=== PATIENT | female | born 2000 | race Caucasian/White ===

== ENCOUNTER 2023-01-12 16:29 | Observation (INO) | payer OTHER, SELFPAY | END 2023-01-12 19:25 | disposition home or self-care (01) | PROVIDERS: Admitting Provider Family Medicine; Referring Provider Family Medicine; Visit Provider Family Medicine | DX: O47.1 False labor at or after 37 completed weeks of gestation (principal); Z3A.38 38 weeks gestation of pregnancy | CPT/HCPCS: 59025; 59050; G0378; G0379 ==

== ENCOUNTER 2023-01-12 22:33 | Inpatient (IN) | payer OTHER, SELFPAY ==
[2023-01-12] MEDS: LACTATED RINGERS 1,000 ML 100 ML IV (23:10)
[2023-01-12 23:35] LABS: Hematocrit 36.7 % (36-46); Hemoglobin 12.6 g/dL (12.0-16.0); Mean Corpuscular HGB Conc 34.4 % (30-36); Mean Corpuscular Hemoglobin 30.5 PG (26-34); Mean Corpuscular Volume 88.6 fL (80-100); Platelet Count 215 X10^3/uL (150-400); Red Blood Cell Count 4.14 X10^6/uL (4.0-5.2); Red Cell Distribution Width 13.8 % (11.6-14.8); White Blood Cell Count 21.9 X10^3/uL (4.5-11.0)
[2023-01-12 23:36] LABS: Add Manual Diff / Slide Review YES
[2023-01-12 23:40] VITALS: BP 119/57
[2023-01-12 23:57] LABS: Neutrophils Absolute Manual 18177 /uL (3000-5900); RBC Morphology Normal Morphology; Total Cells Counted 100
[2023-01-13] MEDS: FENT 2MCG/ML BUPIV 0.125% EPI 200 MCG/100 ML PLAST..BAG 8 MCG EPIDURAL ×2 (00:21→08:15)
[2023-01-13] MEDS: ePHEDrine 50 MG/ML VIAL 10 MG IV (01:07)
--- NOTE | 2023-01-13 07:20 | P.TNLD_ITS ---
Visit Information Visit Information Date of evaluation: 01/12/23 Primary OB Provider: Nedra Maldonado On-call OB Provider: Siomara Moses Reason for Evaluation: Yes rule out labor Vital Signs Vital Signs: Vital Signs - 8 hr 01/12/23 23:40 Blood Pressure 119/57 L PFSH Medical History Acne (~2010) BETTY (generalized anxiety disorder) Surgical History [place] teeth extracted Family History Grandfather Pulmonary hypertension Depression Grandmother Leukemia, acute Cancer Mother Adopted BETTY (generalized anxiety disorder) Social History marital status: number of children: 0 household members: spouse lives independently: No housing: house pets and animals: Yes (3 dogs, aware of toxo) education level: college ([employer]amon's degree) occupational status: unemployed current occupational exposures/hazards: No special sridevi needs: No travel history: recent (domestic only) seatbelt use: always water heater temp set < 120 deg: Yes working smoke detector in home: Yes fire extinguisher in home: Yes carbon monox detector in home: Yes firearms in home: Yes firearms unloaded and locked: Yes do you feel safe at home: Yes Smoking Status: Never smoker second hand exposure: No alcohol intake: former (~1/month prior to ) substance use type: does not use during the past year weight has: remained stable well-balanced diet: daily or most days daily servings fruits/ve-4 caffeine: Yes (1 cup/day, aware of 200mg limit) Type(s) of exercise: regular exercise and running frequency: 3-4 times per week Exam Vital Signs (past 8 hours): - 01/12/23 23:40 Blood Pressure 119/57 L Objective Labs 01/12/23 23:05 Labs: Laboratory Results - last 24 hr 01/12/23 01/12/23 23:05 23:05 WBC 21.9 H RBC 4.14 Hgb 12.6 Hct 36.7 MCV 88.6 MCH 30.5 MCHC 34.4 RDW 13.8 Plt Count 215 Neut % (Auto) Not Reportable Lymph % (Auto) Not Reportable [place] % (Auto) Not Reportable Eos % (Auto) Not Reportable Baso % (Auto) Not Reportable Lymph # (Auto) Not Reportable [place] # (Auto) Not Reportable Baso # (Auto) Not Reportable Total Counted 100 Seg Neutrophils % 77.0 H Band Neutrophils % 6.0 Lymphocytes % (Manual) 11.0 L Monocytes % (Manual) 6.0 Neutrophils # (Manual) 09433 H RBC Morphology Normal morphology Blood Type A Positive Antibody Screen Negative Evaluation Evaluation Baseline heart rate: 135 Variability: Moderate (11-25) monitor accelerations: Present Monitor Decelerations: Absent Contraction Frequency (minutes): 3 Uterine Contraction Intensity: Moderate Category of Tracing: Reactive Status: Category l Cervical dilation (cm): 1 Cervical effacement (%): 90 station: -1 Diagnosis, Plan/Disposition Final Diagnosis (1) 38 weeks gestation of : Status: Acute (2) False labor after 37 completed weeks of gestation: Status: Acute Plan/Disposition Plan: Patient in prodromal labor. She was given Demerol who try to sleep after walking for 2 hours with no change of her cervix. Precautions reviewed to return for rupture membranes, increased labor pains, any other concerns. OB Disposition: home
[2023-01-13] MEDS: LACTATED RINGERS 1,000 ML 100 ML IV (08:15)
--- NOTE | 2023-01-13 08:15 | P.HPOB_ITS ---
OB HPI Date/Time Date of admission: 01/13/23 Date Patient Seen: 01/13/23 History of Present Condition Chief complaint: SILVIA Calculator Estimated Delivery Date Method Current WG Current Estimate 01/20/23 LMP (Certain) 39w 0d Estimated Gestational Age (weeks): 39w0d : 1 Para: 0 Narrative: Pt is a 22yo at 39w0d here with regular painful contractions. Pt reports contractions increasing in frequency all day yesterday. She was evaluated in triage, and ultimately discharged home. Upon returning home, her contractions intensified significantly. She denies any LOF or significant vaginal bleeding. She is feeling her baby move regularly. The pts has been uncomplicated. She did receive a majority of her care in [place], where she was while her was deployed. care: good care, initiated at week # (8) and pounds weight gain (37) Dating criteria OB: LMP confirmed by 1st trimester US Ultrasounds: normal 1st trimester US and normal mid trimester US Obstetrical complications: none Medical complications OB: none Preadmission Labs Last OB Lab Results: Blood Type A Positive 01/12/23 23:05 Antibody Screen Negative 01/12/23 23:05 Hematocrit 36.7 % (36-46) 01/12/23 23:05 Hemoglobin 12.6 g/dL (12.0-16.0) 01/12/23 23:05 -: Urine: negative External Labs -: HBsAG: negative, HIV: negative, RPR/VDLR: negative, Chlamydia screen: negative, GBS status: negative and Urine: negative -: Rubella: immune and Varicella: immune HCAB: negative Genetic Screens: Cell-free DNA: Normal Evaluation Evaluation Baseline heart rate: 150 Variability: Moderate (11-25) monitor accelerations: Present Monitor Decelerations: Absent Contraction Frequency (minutes): 3 Uterine Contraction Intensity: Strong/Firm Status: Category l Dilation (cm): 9 Effacement (%): 100 station: 0 PFSH Medical History Acne (~2010) BETTY (generalized anxiety disorder) Surgical History [place] teeth extracted Family History Grandfather Pulmonary hypertension Depression Grandmother Leukemia, acute Cancer Mother Adopted BETTY (generalized anxiety disorder) Social History marital status: number of children: 0 household members: spouse lives independently: No housing: house pets and animals: Yes (3 dogs, aware of toxo) education level: college (Ramon's degree) occupational status: unemployed current occupational exposures/hazards: No special sridevi needs: No travel history: recent (domestic only) seatbelt use: always water heater temp set < 120 deg: Yes working smoke detector in home: Yes fire extinguisher in home: Yes carbon monox detector in home: Yes firearms in home: Yes firearms unloaded and locked: Yes do you feel safe at home: Yes Smoking Status: Never smoker second hand exposure: No alcohol intake: former (~1/month prior to ) substance use type: does not use during the past year weight has: remained stable well-balanced diet: daily or most days daily servings fruits/ve-4 caffeine: Yes (1 cup/day, aware of 200mg limit) Type(s) of exercise: regular exercise and running frequency: 3-4 times per week Meds Home Medications and Allergies Home Medications Medication Instructions Recorded Confirmed Type prenat.vits,jamila,drm-[id number] 1 tab PO DAILY 05/28/22 01/12/23 History Allergies Allergy/AdvReac Type Severity Reaction Status Date / Time latex Allergy Mild Hives Verified 01/12/23 23:48 OB Exam Narrative Exam Narrative: Gen: NAD, sitting comfortably in bed, appears well CV: RRR, no murmurs Resp: clear to auscultation bilaterally Abd: soft, nontender, gravid Ext: no edema Objective Labs 01/12/23 23:05 Labs: Laboratory Results - last 24 hr 01/12/23 01/12/23 23:05 23:05 WBC 21.9 H RBC 4.14 Hgb 12.6 Hct 36.7 MCV 88.6 MCH 30.5 MCHC 34.4 RDW 13.8 Plt Count 215 Neut % (Auto) Not Reportable Lymph % (Auto) Not Reportable [place] % (Auto) Not Reportable Eos % (Auto) Not Reportable Baso % (Auto) Not Reportable Lymph # (Auto) Not Reportable [place] # (Auto) Not Reportable Baso # (Auto) Not Reportable Total Counted 100 Seg Neutrophils % 77.0 H Band Neutrophils % 6.0 Lymphocytes % (Manual) 11.0 L Monocytes % (Manual) 6.0 Neutrophils # (Manual) 42036 H RBC Morphology Normal morphology Blood Type A Positive Antibody Screen Negative Assessment and Plan Assessment and Plan Assessment and Plan narrative: Pt is a 22yo at 39w0d here in active labor. has been uncomplicated. GBS negative, Rh positive. - Expectant management, anticipate - FHT reassuring - GBS negative, no prophylaxis indicated - Epidural in place for pain control
--- NOTE | 2023-01-13 14:09 | P.PCNOB_ITS ---
Labor & Delivery Delivery date: 01/13/23 Intrapartal Events: Prolonged 2nd Stage > 2.5 hours Delivery augmentation: rupture of membranes Delivery monitor: external FHT and external uterine Route of delivery: vacuum extraction Indication for instrumentation: maternal exhaustion Episiotomy description: None L&D Laceration Description: Perineal - 2nd Degree Delivery repair: vicryl Quantitative Blood Loss: 200 Anesthesia Type: Epidural Complications: None Narrative: PROCEDURE: at 39w0d presented in active labor and was admitted to Labor and Delivery. The patient progressed through the 1st stage over 5 hours. ROM o ccured at 8:25am with clear fluid. Pain was controlled with an epidural. The patient progressed through the 2nd stage over [id number]. Due to maternal exhaustion with slow but continuous progress making concern for shoulder dystocia low, the decision was made to proceed with vacuum-assisted . Patient was evaluated and noted to have adequate pain control. Patient counseled on risks/benefits/alternatives of vacuum [forceps] assisted delivery. Risks were discussed and they included but were not limited to a need for an episiotomy, pressure lock on the baby, lacerations to the baby's scalp/face, serious damage including skull fracture, the need to proceed with an abdominal procedure, , paralysis of the baby's arms and/or legs, neurological impairment of the baby. Alternatives would include CS or further observation depending on status. Questions were answered and the patient verbalized an understanding and decided to proceed. Cervix completely dilated and maternal bladder emptied. Maternal pelvis was noted to be adequate. Vacuum cup of the [place] OmniCup applied to the flexion point without difficulty and during contractions, pressure applied between 400-600 mmHg as indicated in the green zone of the pressure gauge. delivered after 3 contractions 0 pop-offs over an intact perineum. The anterior shoulder and remainder of the was delivered without difficulty. Cord clamped and cut after it stopped pulsating. The was delivered to the maternal abdomen. Infant was examined by and no evidence of injury noted. Delivery time was 12:09, with APGARs 8/9. The placenta delivered with gentle cord traction, and appeared complete. The perineum and vagina were inspected with 2nd degree perineal laceration, stellate onto labial repaired with 2-O Vicryl. Needle and sponge counts were correct.? The vagina was inspected and no items were left in situ. Anita was doing well with Jone, her and her at bedside. PREPROCEDURE DIAGNOSIS: Intrauterine at 39w0d GBS negative RH positive POSTPROCEDURE DIAGNOSIS: Intrauterine at 39w0d, delivered Same as preprocedure Vacuum-assisted due to maternal exhaustion [place] Baby 1: Infant gender: Male Presentation: vertex Position: Left Occiput Anterior Placenta delivery description: Spontaneous Cord Vessel Description: 3 Vessels score (1 min): 8 score (5 min): 9 weight: 7 lb 3.5 oz Plan for aftercare: Routine care
[2023-01-13] MEDS: ACETAMINOPHEN 325 MG TABLET 650 MG PO (14:48)
[2023-01-13] MEDS: IBUPROFEN 600 MG TABLET PO ×2 (14:49→22:04)
[2023-01-13] MEDS: DERMOPLAST SPRAY 20% 60 ML 1 SPRAY TOP (22:04)
[2023-01-13] MEDS: LANOLIN OINT 7 GM 1 APPLIC TOP (22:05)
[2023-01-14] MEDS: IBUPROFEN 600 MG TABLET PO ×3 (03:56→19:34)
[2023-01-14] MEDS: PRENATAL VIT,CALC/IRON/FOLIC 1 TABLET 1 TAB PO (08:29)
[2023-01-14] MEDS: DOCUSATE 100 MG CAPSULE PO (08:29)
--- NOTE | 2023-01-14 14:10 | PM.OBPN.1 ---
Subjective - OB Subjective Patient comments: no complaints and pain well controlled baby status: doing well and nursing well feeding status: exclusively breast feeding Narrative: Patient reports that she is doing well. Her lochia is decreasing appropriately. She has voided successfully. Exam Narrative Exam Narrative: Gen: NAD, sitting comfortably in bed, appears well CV: RRR, no murmurs Resp: clear to auscultation bilaterally Abd: soft, appropriately tender, fundus firm and below the umbilicus, nondistended Ext: no edema Objective Labs 01/12/23 23:05 Assessment & Plan Plan Comments: Pt is a 22yo PPD#1 s/p vacuum-assisted vaginal delivery without complications. Pt doing well. - Normal care - support Time Spent With Patient Time: Total time spent is greater than 50% in coordination of care (as documented) at patient's floor/unit and/or counseling patient: Time with patient: 15-24 minutes
[2023-01-15] MEDS: ACETAMINOPHEN 325 MG TABLET 650 MG PO (00:02)
--- NOTE | 2023-01-15 08:14 | P.DS_ITS ---
Discharge Providers Provider Date of admission: 01/12/23 22:33 Discharge Date: 01/15/23 Primary care physician: Doctor Dena MD Consults: 01/14/23 14:06 Consult to [employer] Charger Operator Routine Comment: Discharge provider: Nedra Maldonado MD Summary Hospital Course Date Patient Seen: 01/15/23 Diagnoses: 39w0d gestation GBS negative Rh positive Vacuum-assisted vaginal delivery Hospital Course: The pt presented in active labor. She had an epidural for pain control. She progressed to complete. After 3+ hours of pushing, due to maternal exhaustion, the decision was made to proceed with vacuum-assisted vaginal delivery. The pt delivered a viable baby boy without complications. A 2nd degree perineal laceration was then repaired. , there were no complications. At the time of discharge she was voiding, ambulating, and passing flatus without difficulty. Her lochia was decreasing appropriately. Her pain was well controlled. She will f/u in 6 weeks for check. Peripartum Data Delivery Method: Assisted Delivery Laceration Description: Perineal - 2nd Degree Episiotomy description: None Procedures: Vacuum-assisted vaginal delivery complications: none 1: Gender: Male Disposition of : home Discharge Diagnosis (1) Vacuum-assisted vaginal delivery: Status: Acute Status at Discharge Cognitive/behavioral status at discharge: oriented Functional status at discharge: independent ambulation Overall status at discharge: patient is progressing back to baseline Time Spent with Patient Time attestation: Total time spent providing and/or coordinating discharge services: Objective Labs 01/12/23 23:05 Exam Narrative Exam Narrative: Gen: NAD, sitting comfortably in bed, appears well CV: RRR, no murmurs Resp: clear to auscultation bilaterally Abd: soft, appropriately tender, fundus firm and below the umbilicus, nondistended Ext: no edema Discharge Plan Discharge Plan Patient Disposition: Home Discharge orders & Medications Prescriptions: New acetaminophen 325 mg Tablet 650 mg PO Q6HR PRN (Reason: Pain, Mild (1-3)) Qty: 30 0RF docusate sodium 100 mg Capsule 100 mg PO DAILY Qty: 30 0RF ibuprofen 600 mg Tablet 600 mg PO Q6HR PRN (Reason: Pain, Mild (1-3)) Qty: 30 0RF Continued prenat.vits,jamila,[id number] Tablet 1 tab PO DAILY Follow up/Referrals: Miscellaneous,Doctor, MD [Primary Care Provider] - Nedra Maldonado MD [Physician] - 6 Weeks (Appointment with on at 12 noon.) Diet/Activity/Treatments Diet: Diet as Tolerated and Regular Skin/Wound/Dressing Care Report to your healthcare provider any signs of infection, such as:: chills, fever, increased pain and unusual drainage Visit Report/Discharge Packet Instructions: DI for Labor and Delivery, Vaginal Stand Alone Forms: Patient Portal/API, Stroke Signs & Symptoms Discharge Data Primary Care Provider: Doctor Dena Discharges patient from system. Discharge Date/Time: 01/15/23 09:44
[2023-01-15 08:20] VITALS: BP 105/71; PULSE 86; RESP 16; TEMP 37.4
[2023-01-15] MEDS: PRENATAL VIT,CALC/IRON/FOLIC 1 TABLET 1 TAB PO (08:39)
[2023-01-15] MEDS: DOCUSATE 100 MG CAPSULE PO (08:39)
== END 2023-01-15 09:44 | disposition home or self-care (01) | DRG 806 ==
PROVIDERS: Admitting Provider Specialist; Referring Provider Specialist; Visit Provider Specialist
DX: O70.1 Second degree perineal laceration during delivery (principal); O47.1 False labor at or after 37 completed weeks of gestation; Z37.0 Single live birth; Z3A.39 39 weeks gestation of pregnancy; O75.81 Maternal exhaustion complicating labor and delivery; Z67.10 Type A blood, Rh positive; Z3A.38 38 weeks gestation of pregnancy
CPT/HCPCS: 36415; 59025; 59050; 59410; 85007; 85025; 86850; 86900; 86901; G0378; G0379

== ENCOUNTER → 2023-02-27 12:07 | Outpatient (CLI) | payer OTHER, SELFPAY | PROVIDERS: PCP Family Medicine; Visit Provider Physician Assistant | DX: R10.9 Unspecified abdominal pain (principal) | CPT/HCPCS: 87086 ==

== ENCOUNTER → 2023-11-30 12:43 | Outpatient (CLI) | payer OTHER, SELFPAY ==
[2023-11-30 14:31] LABS: HCG Quantitative /Beta subunit 299.2 mIU/mL
== END ==
LOC: LAB 12:45
PROVIDERS: PCP Family Medicine; Referring Provider Family Medicine; Visit Provider Family Medicine
DX: Z34.01 Encounter for supervision of normal first pregnancy, first trimester (principal)
CPT/HCPCS: 36415; 84702

== ENCOUNTER → 2023-12-02 12:53 | Outpatient (CLI) | payer OTHER, SELFPAY ==
[2023-12-02 14:14] LABS: HCG Quantitative /Beta subunit 723.9 mIU/mL
== END ==
PROVIDERS: PCP Family Medicine; Referring Provider Family Medicine; Visit Provider Family Medicine
DX: O09.299 Supervision of pregnancy with other poor reproductive or obstetric history, unspecified trimester (principal)
CPT/HCPCS: 36415; 84702

== ENCOUNTER → 2024-07-11 11:58 | Outpatient (CLI) | payer OTHER, SELFPAY ==
[2024-07-12 09:46] LABS: Strep Grp B PCR NEG for Grp B Strep
== END ==
PROVIDERS: PCP Family Medicine; Visit Provider Family Medicine
DX: Z34.03 Encounter for supervision of normal first pregnancy, third trimester (principal); Z3A.36 36 weeks gestation of pregnancy
CPT/HCPCS: 87653

== ENCOUNTER 2024-08-01 12:47 | Outpatient (CLI) | payer OTHER, SELFPAY ==
--- NOTE | 2024-08-01 13:36 | P.TNLD_ITS ---
Visit Information Visit Information Date of evaluation: 08/01/24 Primary OB Provider: Nedra Maldonado Comments/Additional reasons for admission: 23yo at 39w3d here for LOF and contractions. Pt reports cramping starting around 3:30am, increasing in frequency and intensity since then. She reports contractions every 2min when walking prior to presentation. She felt a gush of fluid around 7am, and has continued to leak since then. No vaginal bleeding. She is feeling her baby move regularly. [facility] Medical History (Updated 12/03/23 @ 14:07 by Skylar More RN) Pain of breast during Vacuum-assisted vaginal delivery Acne (~2010) BETTY (generalized anxiety disorder) Surgical History [place] teeth extracted Family History Grandfather Pulmonary hypertension Depression Grandmother Leukemia, acute Cancer Mother Adopted BETTY (generalized anxiety disorder) Social History marital status: number of children: 1 household members: spouse and children lives independently: No housing: house pets and animals: No education level: college (Ramon's degree) occupational status: unemployed current occupational exposures/hazards: No special sridevi needs: No travel history: recent (domestic only) seatbelt use: always water heater temp set < 120 deg: Yes working smoke detector in home: Yes fire extinguisher in home: Yes carbon monox detector in home: Yes firearms in home: Yes firearms unloaded and locked: Yes do you feel safe at home: Yes Smoking Status: Never smoker second hand exposure: No alcohol intake: former (~1/month prior to ) substance use type: does not use during the past year weight has: other (within 10 lb of pre-baby weight (son currently 10 months old)) well-balanced diet: daily or most days daily servings fruits/ve-4 (mostly fruit) caffeine: Yes (occasional cup coffee or soft drink) Type(s) of exercise: walking and running frequency: 3-4 times per week Evaluation Evaluation Baseline heart rate: 145 Variability: Moderate (11-25) monitor accelerations: Present Monitor Decelerations: Absent Contraction Frequency (minutes): 5 Status: Category l Cervical dilation (cm): 4.5 Cervical effacement (%): 90 station: -1 Non-invasive Membranes Rupture Test: positive Diagnosis, Plan/Disposition Plan/Disposition Plan: 23yo at 39w3d here with ROM, early labor. FHT reassuring. GBS negative. After counseling, pt prefers to labor further outside the hospital. Discussed return precautions in depth. Pt will return at 7pm if not earlier. OB Disposition: home
== END 2024-08-01 13:30 | disposition home or self-care (01) ==
LOC: LABOR 13:31 → OB 08-02 11:07
PROVIDERS: PCP Family Medicine; Referring Provider Family Medicine; Visit Provider Family Medicine
DX: O42.92 Full-term premature rupture of membranes, unspecified as to length of time between rupture and onset of labor (principal); Z3A.39 39 weeks gestation of pregnancy
CPT/HCPCS: 59025; 84112; G0378; G0379

== ENCOUNTER 2024-08-01 17:13 | Inpatient (IN) | payer OTHER, SELFPAY ==
[2024-08-01 18:26] VITALS: BP 119/72
[2024-08-01 20:09] LABS: Add Manual Diff / Slide Review NO; Basophils Absolute Auto 100 /uL (0-100); Basophils Percent Auto 0.6 % (0-2); Eosinophils Absolute Auto 100 /uL (0-450); Eosinophils Percent Auto 0.4 % (2-4); Hematocrit 35.1 % (36-46); Hemoglobin 11.6 g/dL (12.0-16.0); Lymphocytes Absolute Auto 2100 /uL (1100-4500); Lymphocytes Percent Auto 13.8 % (25-40); Mean Corpuscular HGB Conc 33.1 % (30-36); Mean Corpuscular Hemoglobin 27.9 PG (26-34); Mean Corpuscular Volume 84.4 fL (80-100); Monocytes Absolute Auto 1400 /uL (0-900); Monocytes Percent Auto 9.1 % (3-14); Neutrophils Absolute Auto 11600 /uL (1500-7000); Neutrophils Percent Auto 76.1 % (50-75); Platelet Count 273 X10^3/uL (150-400); Red Blood Cell Count 4.16 X10^6/uL (4.0-5.2); Red Cell Distribution Width 13.6 % (11.6-14.8); White Blood Cell Count 15.3 X10^3/uL (4.5-11.0)
--- NOTE | 2024-08-01 23:22 | PM.OBHP.IH.1 ---
OB HPI Date/Time Date of admission: 08/01/24 Date Patient Seen: 08/01/24 Time Patient Seen: 22:30 History of Present Condition Chief complaint: labor SILVIA Calculator Estimated Delivery Date Method Current WG Current Estimate 08/05/24 LMP (Certain) 39w 3d Estimated Gestational Age (weeks): 39w3d : 3 Para: 0 Narrative: 23yo at 39w3d here in labor with SROM at 7am. The pt was evaluated in triage earlier today and diagnosed with SROM and in early labor. She elected to discharge and further labor outside the hospital. She denies any vaginal bleeding. She is feeling her baby move regularly. Her was uncomplicated. care: good care, initiated at week # (12) and pounds weight gain (36) Dating criteria OB: LMP confirmed by 1st trimester US Ultrasounds: normal 1st trimester US and normal mid trimester US Obstetrical complications: none Medical complications OB: none Preadmission Labs Last OB Lab Results: Blood Type A Positive 08/01/24 19:45 Antibody Screen Negative 08/01/24 19:45 Hct 35.1 % (36-46) L 08/01/24 19:45 Hgb 11.6 g/dL (12.0-16.0) L 08/01/24 19:45 Group B Strep (PCR) Neg for grp b strep 07/11/24 11:57 External Labs -: HBsAG: negative, HIV: negative, RPR/VDLR: negative, Chlamydia screen: negative and Gonorrhea screen: negative -: Rubella: not immune and Varicella: immune HCAB: negative Genetic Screens: Cell-free DNA: Normal Glucose Tolerance Testin hr (130) Prior (ies) Past Pregnancies Del. Date GA/Weeks Labor Lgth Wt Sex Route Outcome Anesthesia Place Delv Breastfeed Preg Comp Name 01/13/23 39 8 7 lb 3 oz Male vaginal vacuum live - full term epidural IH Still going as of 12/03/23 none Jone 11/04/23 4-5 spontaneous Delivery Date: 11/04/23 Last Updated by: Skylar More RN Passed spontaneously, no complication Evaluation Evaluation Baseline heart rate: 145 Variability: Moderate (11-25) monitor accelerations: Present Monitor Decelerations: Absent Contraction Frequency (minutes): 2 Uterine Contraction Intensity: Strong/Firm Status: Category l Dilation (cm): 9 Effacement (%): 100 station: 0 Position of cervix: mid Consistency: soft PFSH Medical History (Updated 12/03/23 @ 14:07 by Skylar More RN) Pain of breast during Vacuum-assisted vaginal delivery Acne (~2010) BETTY (generalized anxiety disorder) Surgical History [place] teeth extracted Family History Grandfather Pulmonary hypertension Depression Grandmother Leukemia, acute Cancer Mother Adopted BETTY (generalized anxiety disorder) Social History marital status: number of children: 1 household members: spouse and children lives independently: No housing: house pets and animals: No education level: college (Ramon's degree) occupational status: unemployed current occupational exposures/hazards: No special sridevi needs: No travel history: recent (domestic only) seatbelt use: always water heater temp set < 120 deg: Yes working smoke detector in home: Yes fire extinguisher in home: Yes carbon monox detector in home: Yes firearms in home: Yes firearms unloaded and locked: Yes do you feel safe at home: Yes Smoking Status: Never smoker second hand exposure: No alcohol intake: former (~1/month prior to ) substance use type: does not use during the past year weight has: other (within 10 lb of pre-baby weight (son currently 10 months old)) well-balanced diet: daily or most days daily servings fruits/ve-4 (mostly fruit) caffeine: Yes (occasional cup coffee or soft drink) Type(s) of exercise: walking and running frequency: 3-4 times per week Meds Home Medications and Allergies Home Medications Medication Instructions Recorded Confirmed Type prenat.vits,jamila,[id number] 1 tab PO DAILY 05/28/22 08/01/24 History acetaminophen 325 mg tablet 650 mg PO Q6HR PRN Pain, Mild (1-3) 08/01/24 08/01/24 History (Tylenol) Allergies Allergy/AdvReac Type Severity Reaction Status Date / Time latex Allergy Mild Hives Verified 08/01/24 18:28 OB Exam Resp Effort & Inspection: normal respiratory effort Auscultation: clear to auscultation bilaterally Cardio Rate: regular rate Rhythm: regular rhythm Heart Sounds: S1 normal, S2 normal and no murmurs GI Inspection: non-distended Palpation: Yes soft and No tender Presentation: vertex Objective Labs 08/01/24 19:45 Labs: Laboratory Results - last 24 hr 08/01/24 19:45 WBC 15.3 H RBC 4.16 Hgb 11.6 L Hct 35.1 L MCV 84.4 MCH 27.9 MCHC 33.1 RDW 13.6 Plt Count 273 Neut % (Auto) 76.1 H Lymph % (Auto) 13.8 L [place] % (Auto) 9.1 Eos % (Auto) 0.4 L Baso % (Auto) 0.6 Neut # (Auto) 59096 H Lymph # (Auto) 2100 [place] # (Auto) 1400 H Eos # (Auto) 100 Baso # (Auto) 100 Blood Type A Positive Antibody Screen Negative Assessment and Plan Assessment and Plan Assessment and Plan narrative: 23yo at 39w3d here with SROM in active labor. GBS negative, Rh positive. uncomplicated. - Expectant management, anticipate - FHT reassuring. Intermittent auscultation okay. - GBS negative, no prophylaxis indicated - Desires natural methods for pain control Time-Based Coding :: [TOTAL MINUTES] spent with patient and on the chart (including review of chart, obtaining history, exam, reviewing outside data, placing orders, documenting exam and treatment plan, and counseling patient) on [DATE].
[2024-08-01] MEDS: LACTATED RINGERS 500 ML 1000 ML IV (23:51)
--- NOTE | 2024-08-02 00:55 | P.PCNOB_ITS ---
Labor & Delivery Delivery date: 08/02/24 Induction method: none Delivery monitor: external FHT and external uterine Route of delivery: Episiotomy description: None Quantitative Blood Loss: 200 Anesthesia Type: None Complications: None Narrative: PROCEDURE: at 39w3d presented in active labor with SROM at home (clear fluid, 7am) and was admitted to Labor and Delivery. The patient progressed through the 1st stage over 16.5 hours. Pain was controlled with natural methods. The patient progressed through the 2nd stage over 1 hours and delivered a viable male infant with APGARs 8/9 at 00:40 via without complications. The cord was cut and clamped after it stopped pulsating. The placenta delivered with gentle cord traction, and appeared complete. The perineum and vagina were inspected with small 1st degree laceration that was hemostatic and no repair required. Needle and sponge counts were correct.? The vagina was inspected and no items were left in situ. Anita was doing well with Jayden, her and her at bedside. PREPROCEDURE DIAGNOSIS: Intrauterine at 39w3d GBS negative RH positive POSTPROCEDURE DIAGNOSIS: Intrauterine at 39w3d, delivered Same as preprocedure [place] Baby 1: Infant gender: Male Presentation: vertex Position: Right Occiput Anterior Placenta delivery description: Spontaneous Cord Vessel Description: 3 Vessels and Nuchal Cord score (1 min): 8 score (5 min): 9 weight: 8 lb 10.486 oz Plan for aftercare: Routine care
[2024-08-02] MEDS: IBUPROFEN 600 MG TABLET PO ×2 (00:56→16:03)
[2024-08-02] MEDS: WITCH HAZEL/GLYCERIN PADS 1 EACH TOP (03:09)
[2024-08-02] MEDS: DERMOPLAST SPRAY 20% 60 ML 1 SPRAY TOP (03:10)
[2024-08-02] MEDS: PRENATAL VIT,CALC/IRON/FOLIC 1 TABLET 1 TAB PO (09:29)
[2024-08-02] MEDS: DOCUSATE 100 MG CAPSULE PO (09:29)
--- NOTE | 2024-08-02 14:44 | PM.OBDS.1 ---
Discharge Providers Provider Date of admission: 08/01/24 17:13 Discharge Date: 08/02/24 Primary care physician: Nedra Maldonado MD Consults: 08/03/24 00:56 Consult to Supervisor [employer] Routine Comment: Discharge provider: Nedra Maldonado MD Summary Hospital Course Date Patient Seen: 08/02/24 Time Patient Seen: 12:30 Diagnoses: 39w3d gestation GBS negative Rh positive Hospital Course: The pt presented in active labor with SROM at home. She used natural methods for pain control. She progressed to complete dilation and had an uncomplicated of a viable baby boy. There were no lacerations requiring repair. , there were no complications. At the time of discharge she was voiding, ambulating, and passing flatus without difficulty. Her lochia was decreasing appropriately. Her pain was well controlled. She was with good latch. She will f/u in 6 weeks for check. Peripartum Data Delivery Method: Natural Vaginal Laceration Description: Perineal - 1st Degree Episiotomy description: None Procedures: Spontaneous vaginal delivery complications: none 1: Gender: Male Disposition of : home Time Spent with Patient Time attestation: Total time spent providing and/or coordinating discharge services: Objective Labs 08/01/24 19:45 Labs: Laboratory Results - last 24 hr 08/01/24 19:45 WBC 15.3 H RBC 4.16 Hgb 11.6 L Hct 35.1 L MCV 84.4 MCH 27.9 MCHC 33.1 RDW 13.6 Plt Count 273 Neut % (Auto) 76.1 H Lymph % (Auto) 13.8 L [place] % (Auto) 9.1 Eos % (Auto) 0.4 L Baso % (Auto) 0.6 Neut # (Auto) 74550 H Lymph # (Auto) 2100 [place] # (Auto) 1400 H Eos # (Auto) 100 Baso # (Auto) 100 Blood Type A Positive Antibody Screen Negative Exam Narrative Exam Narrative: Gen: NAD, sitting comfortably in bed, appears well CV: RRR, no murmurs Resp: clear to auscultation bilaterally Abd: soft, appropriately tender, fundus firm and below the umbilicus, nondistended Ext: no edema Discharge Plan Discharge Plan Patient Disposition: Home Discharge orders & Medications Prescriptions: Continued prenat.vits,jamila,[id number] Tablet 1 tab PO DAILY acetaminophen [Tylenol] 325 mg tablet 650 mg PO Q6HR PRN (Reason: Pain, Mild (1-3)) Follow up/Referrals: Nedra Maldonado MD [Primary Care Provider] - (09/05/24 @ 3:30pm with Dr. aMldonado.) Diet/Activity/Treatments Diet: Diet as Tolerated and Regular Skin/Wound/Dressing Care Report to your healthcare provider any signs of infection, such as:: chills, fever, increased pain and unusual drainage Visit Report/Discharge Packet Stand Alone Forms: Discharge: Care, Patient Portal/API Discharge Data Primary Care Provider: Nedra Maldonado Discharges patient from system. Discharge Date/Time: 08/02/24 19:06
[2024-08-02 16:06] VITALS: BP 119/72; PULSE 68; RESP 20; TEMP 36.9
== END 2024-08-02 19:06 | disposition home or self-care (01) | DRG 807 ==
PROVIDERS: Admitting Provider Family Medicine; PCP Family Medicine; Referring Provider Family Medicine; Visit Provider Family Medicine
DX: O80 Encounter for full-term uncomplicated delivery (principal); Z37.0 Single live birth; Z3A.39 39 weeks gestation of pregnancy; O42.92 Full-term premature rupture of membranes, unspecified as to length of time between rupture and onset of labor
CPT/HCPCS: 36415; 59025; 59050; 59410; 84112; 85025; 86850; 86900; 86901; G0379